=== PATIENT | female | born 1935 | race Caucasian/White ===

== ENCOUNTER 2021-05-01 19:04 | Emergency (ER) | payer MEDICARE, BC ==
[2021-05-01] MEDS ORDERED: Bupivacaine 0.5% 10 ML SDV INJECT ONE (19:08)
--- NOTE | 2021-05-01 19:10 | EDM.PDOC ---
ED HPI GENERAL MEDICAL PROBLEM - General Chief Complaint: Upper Extremity Injury/Pain Stated Complaint: left hand finger dislocation Time Seen by Provider: 05/01/21 19:08 Source of Information: Reports: Patient, EMS - History of Present Illness INITIAL COMMENTS - FREE TEXT/NARRATIVE: Patient comes emergency department today from the local prison with complaints of a fall and an injury to her right hand. This patient was ambulating when she tripped at the prison falling landing on her right hand and subsequently had deformities to the right third and fourth finger of the right hand. She did not hit her head. There was no loss conscious. She denies any head neck or back pain. She did not have any weakness dizziness lightheadedness palpitations or syncope prior to the fall. She reports that she just tripped and fell landing on her right hand. She complains of severe pain to the third and fourth finger of the right hand. No other pain to the hand wrist elbow or forearm. The patient does have a history of dementia as well and is pleasantly confused. - Related Data Allergies Allergy/AdvReac Type Severity Reaction Status Date / Time tramadol AdvReac Nausea and Verified 09/28/14 13:06 Vomiting Home Meds: Home Meds Alendronate Sodium [Alendronate] 70 mg PO Q7D 09/28/14 [History] Amoxicillin/Clavulanate K [Augmentin 875 MG] 1 tab PO BID #20 tablet 09/28/14 [Rx] Lisinopril 40 mg PO DAILY 09/28/14 [History] Metoprolol Succinate [Toprol XL] 12.5 mg PO BID 09/28/14 [History] Omeprazole 20 mg PO DAILY 09/28/14 [History] Simvastatin [Zocor] 20 mg PO BEDTIME 09/28/14 [History] Lisinopril 20 mg PO DAILY 12/11/14 [History] Social & Family History - Living Situation & Occupation Living situation: Reports: , with Family Occupation: Retired Review of Systems - Review of Systems Review Of Systems: Comprehensive ROS is negative, except as noted in HPI. ED EXAM, GENERAL - Physical Exam Exam: See Below Exam Limited By: No Limitations General Appearance: Alert, WD/WN, No Apparent Distress Eye Exam: Bilateral Eye: EOMI, PERRL Ears: Normal External Exam Nose: Normal Inspection Throat/Mouth: Normal Inspection Head: Atraumatic, Normocephalic Neck: Normal Inspection, Supple, Non-Tender, Full Range of Motion. No: Tender Lateral, Tender Midline Respiratory/Chest: No Respiratory Distress Cardiovascular: Normal Peripheral Pulses Peripheral Pulses: 2+: Radial (L), Radial (R) GI/Abdominal: Normal Bowel Sounds, Soft (Female) Exam: Deferred Rectal (Female) Exam: Deferred Back Exam: No: Paraspinal Tenderness, Vertebral Tenderness Extremities: Normal Capillary Refill. No: Normal Inspection (The third and fourth finger PIP joint have a obvious deformity to the lateral aspect. There is no breaks in the skin. The CMS is intact appropriately. There is no other signs of trauma of the hand.) Neurological: Alert Skin Exam: Warm, Dry, Intact, Normal Color, No Rash Course - Orders/Labs/Meds Orders: Active Orders 24 hr Category Date Time Status Hand 2V Rt [CR] Stat Exams 05/01/21 19:45 Ordered Hand Comp Min 3V Lt [CR] Stat Exams 05/01/21 19:09 Ordered Meds: Medications Discontinued Medications Generic Name Dose Route Start Last Admin Trade Name Freq PRN Reason Stop Dose Admin Bupivacaine HCl 10 ml 05/01/21 19:08 Bupivacaine 0.5% 10 Ml Sdv INJECT 05/01/21 19:09 ONETIME ONE Lidocaine HCl 5 ml 05/01/21 19:08 Lidocaine 1% 5 Ml Sdv INJECT 05/01/21 19:09 ONETIME ONE - Radiology Interpretation Free Text/Narrative:: X-ray initially reviewed extemporaneously by myself on the left hand shows a dislocation lateral projection at the PIP joint of the third and fourth fingers. No overt bony deformity. Post reduction shows a successful reduction. Question of possible chip fracture at the base of the third mid phalange on the medial aspect radiological review to follow. - Re-Assessments/Exams Free Text/Narrative Re-Assessment/Exam: 05/01/21 19:30 Risk and benefits of a isolated digital block was explained to the patient. Verbal consent was obtained. Lidocaine 1% without epinephrine and bupivacaine 0.5% without epinephrine were mixed in a 50-50 fashion in the syringe. The base of the third and the fourth finger medially and laterally of the right hand were cleansed with Betadine and allowed to dry the appropriate time period. I then injected 2.5 mils of the above solution medially and laterally to the third and fourth finger. Hemostasis was obtained spontaneously. The patient tolerated the procedure well. 05/01/21 20:10 Reduction of the fingers was completed with manual traction distraction patient tolerated the procedure excellent without any pain had good anesthesia from the local block. CMS was intact appropriately. She was able to flex and extend at the DIP and PIP joints. As well as the MCP joints. CMS was intact appropriately. Postreduction x-ray shows successful reduction question small chip fracture on the base of the third mid phalanges. The left hand had a stockinette placed and I attempted to place a ulnar gutter splint due to the patient's confusion and my concern for possibly removing the splint I thought a longer more robust splint would be more appropriate. Ulnar gutter splint was placed on the lateral aspect of the ulnar side of the distal left forearm to involve the third fourth and fifth fingers. This was rather complicated and difficult to place as the patient is confused and Constantly clenching her fingers and would not allow the fingers to be put in the position of neutral. Multiple attempts with different Ortho-Glass was needed to try to get it in a position of neutral which is somewhat close but it is difficult with this patient's confusion or lack of understanding and dementia. CMS was intact after the attempted splinting which was successful although quite difficult. Discharge back to the prison have her follow-up with primary care in 1 week radiological review to follow. Departure - Departure Time of Disposition: 20:04 Disposition: DC/Tfer to [facility] 03 Clinical Impression: Dislocation, finger closed Qualifiers: Encounter type: initial encounter Qualified Code(s): S63.259A - Unspecified dislocation of unspecified finger, initial encounter - Discharge Information Instructions: Cast or Splint Care, Adult, [id number], Pain Medicine Instructions, [id number] Referrals: Jaycee Head MD [Primary Care Provider] - Forms: ED Department Discharge Additional Instructions: Back to the prison. Continue all previous therapies. Ice 4 times a day for the next 4 days. Tylenol as needed for pain. Keep the splint wet. PCP to recheck in 1 week. Keep splint on till then. - My Orders Last 24 Hours: My Active Orders 05/01/21 19:09 Hand Comp Min 3V Lt [CR] Stat 05/01/21 19:45 Hand 2V Rt [CR] Stat - Assessment/Plan Last 24 Hours: My Active Orders 05/01/21 19:09 Hand Comp Min 3V Lt [CR] Stat 05/01/21 19:45 Hand 2V Rt [CR] Stat
[2021-05-02 00:04] VITALS: BP 148/62; PULSE 86
== END 2021-05-01 20:30 ==
LOC: LL.ED 19:04
DX: S63.253A Unspecified dislocation of left middle finger, initial encounter (principal); S63.255A Unspecified dislocation of left ring finger, initial encounter; Z88.5 Allergy status to narcotic agent; Z79.899 Other long term (current) drug therapy; W18.39XA Other fall on same level, initial encounter; Y92.129 Unspecified place in nursing home as the place of occurrence of the external cause
CPT/HCPCS: 26770; 73120-RT; 73130-LT; 99283; 99283-25; J3490

== ENCOUNTER 2022-01-07 12:14 | Emergency (ER) | payer MEDICARE, BC ==
[2022-01-07] MEDS: OLANZapine 5 MG Tab PO PRN (13:37)
[2022-01-07] MEDS: OLANZapine 5 MG Tab ONE (13:38)
== END 2022-01-07 13:42 ==
LOC: LL.ED 12:14
DX: F03.91 Unspecified dementia, unspecified severity, with behavioral disturbance (principal); J44.9 Chronic obstructive pulmonary disease, unspecified; E78.00 Pure hypercholesterolemia, unspecified; I10 Essential (primary) hypertension; Z88.5 Allergy status to narcotic agent; Z88.8 Allergy status to other drugs, medicaments and biological substances; Z79.899 Other long term (current) drug therapy
CPT/HCPCS: 99284; 99285; A9270-GY

== ENCOUNTER 2022-01-16 19:25 | Emergency (ER) | payer MEDICARE, BC ==
[2022-01-16 19:32] VITALS: BP 120/61; PULSE 61
[2022-01-16 20:21] LABS: ANION GAP 4.6 meq/L (7-15)
[2022-01-16] MEDS: Haloperidol Lactate 2 MG/ML Oral Soln 15 ML Bottle PO ONE (20:57)
[2022-01-16] MEDS: diphenhydrAMINE 25 MG Cap PO ONE (20:57)
[2022-01-16] MEDS: Haloperidol Lactate 5 MG/ML SDV IM ONE (21:38)
== END 2022-01-16 22:23 ==
LOC: LL.ED 19:25
DX: G30.9 Alzheimer's disease, unspecified (principal); J44.9 Chronic obstructive pulmonary disease, unspecified; I10 Essential (primary) hypertension; Z88.5 Allergy status to narcotic agent; Z88.8 Allergy status to other drugs, medicaments and biological substances; Z88.6 Allergy status to analgesic agent; Z79.899 Other long term (current) drug therapy
CPT/HCPCS: 36415; 51701; 80053; 81001; 85025; 96372; 99285; A9270-GY; J1630

== ENCOUNTER 2022-04-28 16:12 | Emergency (ER) | payer MEDICARE, BC, MEDICAID ==
[2022-04-28 16:18] VITALS: BP 155/54; PULSE 68
[2022-04-28 16:57] LABS: ANION GAP 8.8 meq/L (7-15)
== END 2022-04-28 18:00 ==
LOC: LL.ED 16:12 → SUPCPDRO 16:12 → LL.ED 18:00
DX: S01.01XA Laceration without foreign body of scalp, initial encounter (principal); J44.9 Chronic obstructive pulmonary disease, unspecified; I10 Essential (primary) hypertension; Z88.8 Allergy status to other drugs, medicaments and biological substances; Z79.82 Long term (current) use of aspirin; Z79.899 Other long term (current) drug therapy; W01.198A Fall on same level from slipping, tripping and stumbling with subsequent striking against other object, initial encounter
CPT/HCPCS: 12001; 36415; 70450; 72125; 80053; 85025; 85610; 99283; 99284